=== PATIENT | female | born 1995 | race Caucasian/White ===

== ENCOUNTER → 2020-11-18 | Outpatient (CLI) | LOC: M LABSMTC 11:44 | PROVIDERS: ATTEND Pediatrics | DX: Z20.828 Contact with and (suspected) exposure to other viral communicable diseases (principal) ==

== ENCOUNTER → 2025-11-22 | Outpatient (CLI) | payer OTHER | LOC: M WUC 10:23 | PROVIDERS: ATTEND Student in an Organized Health Care Education/Training Program | DX: J10.00 Influenza due to other identified influenza virus with unspecified type of pneumonia (principal) ==